=== PATIENT | female | born 1965 | race African-American/Black ===

== ENCOUNTER → 2023-03-08 | Emergency (ER) | payer SELFPAY ==
[~2023-03-08] MED LIST: INSULIN REGULAR (HUMAN) 100 UNIT/ML ONE; KETOROLAC 30 MG/ML INJ ONE; MORPHINE 4 MG/ML SYR ONE; NA CHLORIDE 0.9% 1,000 ML ONE; ONDANSETRON 4 MG/2 ML VIAL ONE
[2023-03-08 17:36] LABS: Hematocrit 39.4 % (36.0-45.0); Lymphocytes % 27.1 % (15.3-44.8); MCV 86.2 fL (80-100); MPV 11.1 fL (7.6-11.3); Platelets 221 thou/uL (152-406); RBC Red Blood Cell Count 4.56 M/uL (3.86-4.86)
[2023-03-08 17:58] LABS: Albumin 3.3 g/dL (3.4-5.0); Bilirubin Total 0.2 mg/dL (0.2-1.0); Potassium 4.3 mEq/L (3.5-5.1); Protein, Total 8.5 g/dL (6.4-8.2)
--- NOTE | 2023-03-08 18:57 | RAD REPORT ---
EXAM DESCRIPTION: CT - Abdomen Pelvis W Contrast - 03/08/2023 6:41 pm CLINICAL HISTORY: Abdominal pain COMPARISON: none. TECHNIQUE: Computed axial tomography of the abdomen pelvis was obtained. 100 cc Isovue-300 was admin istered intravenously. Oral contrast was not requested which limits evaluation of bowel and appendix All CT scans are performed using dose optimization technique as appropriate and may include automated exposure control or mA/KV adjustment according to patient size. FINDINGS: Mild fatty liver. Multiple gallstones. 13 millimeter low to intermediate density lesion spleen. Pancreas, adrenal and right kidney appear unremarkable. A 4 millimeter calculus left kidney. No hydro nephrosis There is no evidence of diverticulitis. Normal appendix Fibroid uterus. Several enlarged right inguinal lymph nodes containing small calcifications. Largest measures 3.8 x 2 .3 centimeters. Several right iliac chain lymph nodes. Largest 1.5 centimeter short axis. Some contai n small calcifications Small umbilical hernia IMPRESSION: Right inguinal and right iliac lymphadenopathy. Right inguinal lymph node would be yadi ble to ultrasound-guided core biopsy Cholelithiasis 13 millimeter splenic lesion nonspecific. Follow-up ultrasound in 2 months recommended for re-evaluat ion
--- NOTE | 2023-03-08 19:51 | ER ---
Nurse's Notes [facility] Name: Dimple Ramires Age: 57 yrs Sex: Female : 1965 Arrival Date: 03/08/2023 Time: 16:17 Bed 13 Private MD: Diagnosis: Other cholelithiasis without obstruction;Other nonspecific lymphadenitis;Hyperglycemia, unspecified Presentation: 03/08 16:24 Chief complaint: Patient states: 1 HR R FLANK PAIN WITH CLOUDY URINE. Coronavirus bp screen: At this time, the client does not indicate any symptoms associated with coronavirus-19. Ebola Screen: No symptoms or risks identified at this time. Initial Sepsis Screen: Does the patient meet any 2 criteria? No. Patient's initial sepsis screen is negative. Does the patient have a suspected source of infection? No. Patient's initial sepsis screen is negative. Risk Assessment: Do you want to hurt yourself or someone else? Patient reports no desire to harm self or others. Onset of symptoms was March 08, 2023 at 15:00. 16:24 Method Of Arrival: Ambulatory bp 16:24 Acuity: BRYANT 3 bp Historical: - Allergies: 16:26 Bactrim DS; bp - Home Meds: 16:26 aspirin 81 mg Oral capsule [Active]; lisinopril-hydrochlorothiazide 20-25 mg oral bp tablet 1 tab daily [Active]; duloxetine 60 mg oral capsule,delayed release (e.c.) 1 cap daily [Active]; omeprazole 20 mg Oral tablet, delayed release (enteric coated) 1 tabs daily [Active]; atenolol 50 mg Oral tablet 1 tabs daily [Active]; topiramate 25 mg oral tablet 1 tab daily [Active]; hydroxyzine HCl 25 mg Oral tablet 1 tab 3 times per day [Active]; - PMHx: 16:26 Hypertensive disorder; Diabetes mellitus; Gout; bp - Immunization history:: Adult Immunizations up to date. - Social history:: Smoking status: Patient denies any tobacco usage or history of. Screenin:25 [facility] ED Fall Risk Assessment (Adult) History of falling in the last 3 months, rs5 including since admission No falls in past 3 months (0 pts) Confusion or Disorientation No (0 pts) Intoxicated or Sedated No (0 pts) Impaired Gait No (0 pts) Mobility Assist Device Used No (0 pt) Altered Elimination No (0 pt) Score/Fall Risk Level 0 - 2 = Low Risk Oriented to surroundings, Maintained a safe environment. 16:25 Abuse screen: Denies threats or abuse. Nutritional screening: No deficits noted. rs5 Tuberculosis screening: No symptoms or risk factors identified. Assessment: 16:25 General: Appears in no apparent distress. uncomfortable, Behavior is calm, cooperative. rs5 Pain: Pain: Complains of pain in right flank Pain does not radiate. Pain currently is 8 out of 10 on a pain scale. Quality of pain is described as aching, Pain began 2 hours ago. Is continuous. 16:25 Neuro: Level of Consciousness is awake, alert, obeys commands, Oriented to person, rs5 place, time, situation. Cardiovascular: Heart tones S1 S2 present Rhythm is regular. 16:25 Respiratory: Airway is patent Respiratory effort is even, unlabored, Respiratory rs5 pattern is regular, symmetrical, Breath sounds are clear bilaterally. GI: Abdomen is round non-distended, Bowel sounds present X 4 quads. Abd is soft and non tender X 4 quads. Reports nausea. : No signs and/or symptoms were reported regarding the genitourinary system. EENT: No signs and/or symptoms were reported regarding the EENT system. Derm: Skin is intact, Skin is dry, Skin is normal, Skin temperature is warm. Musculoskeletal: Range of motion: intact in all extremities. 17:45 Reassessment: Patient and/or family updated on plan of care and expected duration. Pain rs5 level reassessed. Patient is alert, oriented x 3, equal unlabored respirations, skin warm/dry/pink. Patient states feeling better. Patient states symptoms have improved. 18:36 Reassessment: No changes from previously documented assessment. rs5 19:30 General: Appears comfortable, Behavior is calm, cooperative. Pain: Complains of pain in ha1 right flank Pain does not radiate. Pain currently is 2 out of 10 on a pain scale. Neuro: Level of Consciousness is awake, alert, obeys commands, Oriented to person, place, time, situation. Respiratory: Airway is patent Respiratory effort is even, unlabored, Respiratory pattern is regular, symmetrical. Derm: Skin is moist, Skin is normal. Musculoskeletal: Circulation, motion, and sensation intact. Range of motion: intact in all extremities. 20:30 Reassessment: Patient and/or family updated on plan of care and expected duration. Pain ha1 level reassessed. Patient is alert, oriented x 3, equal unlabored respirations, skin warm/dry/pink. discharge pending follow up on sugar levels. Vital Signs: 16:24 BP 107 / 87; Pulse 82; Resp 18; Temp 98.6; Pulse Ox 100% ; Weight 117.93 kg; Height 5 bp ft. 7 in. ; 17:25 BP 107 / 55; Pulse 70; Resp 17; Pulse Ox 99% on R/A; rs5 19:33 BP 121 / 75; Pulse 66; Resp 17 S; Pulse Ox 100% on R/A; ha1 20:30 BP 105 / 84; Pulse 65; Resp 17 S; Pulse Ox 100% on R/A; ha1 16:24 Body Mass Index 40.72 (117.93 kg, 170.18 cm) bp ED Course: 16:19 Patient arrived in ED. rg4 16:20 Fabian Escamilla MD is Attending Physician. ec2 16:25 Patient has correct armband on for positive identification. Placed in gown. Bed in low rs5 position. Call light in reach. Side rails up X2. 16:25 No provider procedures requiring assistance completed. rs5 16:26 Triage completed. bp 16:26 Arm band placed on. bp 16:53 Koko Scott, RN is Primary Nurse. rs5 17:15 Missed attempt(s): 22 gauge in right forearm. x 2. Bleeding controlled, band aid ll1 applied, catheter tip intact. 17:59 Minoo Treviño FNP-C is PHCP. ec2 18:43 CT Abd/Pelvis - IV Contrast Only In Process Unspecified. EDMS Administered Medications: 17:20 Drug: NS 0.9% IV 1000 ml IV at 1 bolus Per protocol; 1000 mL bolus Route: IV; Rate: 1 rs5 bolus; Site: right antecubital; 20:13 Follow up: Response: No adverse reaction; IV Status: Completed infusion ha1 17:20 Drug: TORadol - Ketorolac IVP 15 mg IVP once Route: IVP; Site: right antecubital; rs5 17:20 Drug: Ondansetron IVP 4 mg IVP once; over 2 minutes Route: IVP; Site: right antecubital;rs5 17:20 Drug: morphine IVP or IV 4 mg IVP once over 4 mins Route: IVP; Infused Over: 4 mins; rs5 Site: right antecubital; 20:05 Drug: Insulin Regular Human Sub-Q 10 units Sub-Q once {Co-Signature: me1 (fabiano Boss RN).} Route: Sub-Q; Site: abdomen; 20:46 Follow up: Response: No adverse reaction; Blood sugar is lowered ha1 Medication: 16:25 VIS not applicable for this client. rs5 Outcome: 19:51 Discharge ordered by . kb 20:57 Patient left the ED. ha1 Signatures: Dispatcher [employer] EDMinoo Orozco, AMPARO-C MANAGER ART-Demetria Rogel rg4 Harrison Melo RN RN Geena Burks RN RN 1 Bette Abreu RN RN 1 Koko Scott RN RN rs5 Fabian Escamilla MD MD 2 Kala Boss RN me1 Corrections: (The following items were deleted from the chart) 16:29 16:26 Allergies: No Known Allergies; bp bp 18:33 16:25 Pain: rs5 rs5
--- NOTE | 2023-03-08 19:52 | EDPHYS ---
Physician Documentation [facility] Name: Dimple Ramires Age: 57 yrs Sex: Female : 1965 Arrival Date: 03/08/2023 Time: 16:17 Bed 13 Private MD: ED Physician Fabian Escamilla HPI: 03/08 16:29 This 57 yrs old Black Female presents to ER via Ambulatory with complaints of Flank ec2 Pain. 16:29 Patient arrives today for evaluation of right-sided flank pain. Patient reports that ec2 she is having worsening pain over the past hour. States that the pain is in the right flank and goes into the right abdomen. Patient reports associated nausea without vomiting. Patient reports no diarrhea symptoms. Denies fevers, chills. Does report history of pyelonephritis, does report some cloudy urine as well as increased urinary frequency. Reports no abdominal surgery history pertinent for bilateral salpingectomy. Historical: - Allergies: 16:26 Bactrim DS; bp - Home Meds: 16:26 aspirin 81 mg Oral capsule [Active]; lisinopril-hydrochlorothiazide 20-25 mg oral bp tablet 1 tab daily [Active]; duloxetine 60 mg oral capsule,delayed release (e.c.) 1 cap daily [Active]; omeprazole 20 mg Oral tablet, delayed release (enteric coated) 1 tabs daily [Active]; atenolol 50 mg Oral tablet 1 tabs daily [Active]; topiramate 25 mg oral tablet 1 tab daily [Active]; hydroxyzine HCl 25 mg Oral tablet 1 tab 3 times per day [Active]; - PMHx: 16:26 Hypertensive disorder; Diabetes mellitus; Gout; bp - Immunization history:: Adult Immunizations up to date. - Social history:: Smoking status: Patient denies any tobacco usage or history of. ROS: 16:29 Constitutional: as per hpi ec2 Exam: 16:29 Constitutional: GEN: NAD Head: atraumatic Eyes: EOMI Ears: External ears are ec2 normal. CV: regular rate LUNGS: no respiratory distress ABD: non-distended, soft, nontender in the abdomen, no guarding, nonrigid, right CVA TTP SKIN: no evidence of rashes MSK: no evidence of trauma NEURO: moves all extremities equally Vital Signs: 16:24 BP 107 / 87; Pulse 82; Resp 18; Temp 98.6; Pulse Ox 100% ; Weight 117.93 kg; Height 5 bp ft. 7 in. ; 17:25 BP 107 / 55; Pulse 70; Resp 17; Pulse Ox 99% on R/A; rs5 19:33 BP 121 / 75; Pulse 66; Resp 17 S; Pulse Ox 100% on R/A; ha1 20:30 BP 105 / 84; Pulse 65; Resp 17 S; Pulse Ox 100% on R/A; ha1 16:24 Body Mass Index 40.72 (117.93 kg, 170.18 cm) bp MDM: 16:25 Patient medically screened. ec2 16:29 Data reviewed: vital signs. ED course: Patient arrives today for evaluation of right ec2 flank pain. Examination remarkable for well-appearing nontoxic individual is otherwise in no acute distress with right CVA TTP. Will obtain lab work, CT imaging, treat the patient's pain and reassess patient. Currently considering processes such as ureteral stone, pyelonephritis, low suspicion for process such as cholecystitis or appendicitis.. 17:59 Transition of care: After a detail discussion of the patient's case, care is ec2 transferred to Minoo MCMILLAN. ED course: Patient signed out pending labs and imaging.. 19:51 Counseling: I had a detailed discussion with the patient and/or guardian regarding the kb historical points, exam findings, and any diagnostic results supporting the discharge/admit diagnosis, lab results, radiology results, the need for outpatient follow up, a family practitioner, a general surgeon, to return to the emergency department if symptoms worsen or persist or if there are any questions or concerns that arise at home. 03/08 16:28 Order name: CBC with Diff; Complete Time: 17:51 ec2 03/08 16:28 Order name: CMP; Complete Time: 18:08 ec2 03/08 16:28 Order name: Lipase; Complete Time: 18:08 ec2 03/08 20:19 Order name: Glucose, Ancillary Testing; Complete Time: 20:24 EDMS 03/08 20:56 Order name: Glucose, Ancillary Testing; Complete Time: 20:56 EDMS 03/08 16:28 Order name: CT Abd/Pelvis - IV Contrast Only; Complete Time: 19:08 ec2 03/08 16:28 Order name: IV Saline Lock; Complete Time: 17:03 ec2 03/08 16:28 Order name: Labs collected and sent; Complete Time: 17:03 ec2 Administered Medications: 17:20 Drug: NS 0.9% IV 1000 ml IV at 1 bolus Per protocol; 1000 mL bolus Route: IV; Rate: 1 rs5 bolus; Site: right antecubital; 20:13 Follow up: Response: No adverse reaction; IV Status: Completed infusion ha1 17:20 Drug: TORadol - Ketorolac IVP 15 mg IVP once Route: IVP; Site: right antecubital; rs5 17:20 Drug: Ondansetron IVP 4 mg IVP once; over 2 minutes Route: IVP; Site: right antecubital;rs5 17:20 Drug: morphine IVP or IV 4 mg IVP once over 4 mins Route: IVP; Infused Over: 4 mins; rs5 Site: right antecubital; 20:05 Drug: Insulin Regular Human Sub-Q 10 units Sub-Q once {Co-Signature: 1 (fabiano Boss RN).} Route: Sub-Q; Site: abdomen; 20:46 Follow up: Response: No adverse reaction; Blood sugar is lowered ha1 Disposition: 19:52 Chart complete. kb Disposition Summary: 03/08/23 19:51 Discharge Ordered Notes: Location: Home kb Condition: Stable kb Diagnosis - Other cholelithiasis without obstruction kb - Other nonspecific lymphadenitis kb - Hyperglycemia, unspecified kb Followup: kb - With: Emergency Department - When: As needed - Reason: Worsening of condition Followup: kb - With: Private Physician - When: 2 - 3 days - Reason: Recheck today's complaints, Continuance of care, Re-evaluation by your physician Discharge Instructions: - Discharge Summary Sheet kb - Cholelithiasis, [id number] kb - Lymphadenopathy kb Forms: - Medication Reconciliation Form kb - Thank You Letter kb - Antibiotic Education kb - Prescription Opioid Use kb - Patient Portal Instructions kb - Leadership Thank You Letter kb Addendum: 03/14/2023 17:40 I was immediately available for consultation during this patient's visit. I did not e c2 personally see the patient or guide the patient's care. . Signatures: Dispatcher [employer] Minoo Fung, AMPARO-C AMPARO-Harrison Masters RN RN bp Bette Abreu RN RN ha1 Koko Scott RN RN rs5 Fabian Escamilla MD MD ec2 Kala Boss RN me1 Corrections: (The following items were deleted from the chart) 03/08 16:29 16:26 Allergies: No Known Allergies; bp bp 17:38 16:36 Patient medically screened. ec2 ec2
[2023-03-08 22:03] VITALS: BP 105/84; TEMP 98.6; O2SAT 100
== END ==
LOC: ER 16:17
DX: K80.80 Other cholelithiasis without obstruction (principal); I88.8 Other nonspecific lymphadenitis; E11.65 Type 2 diabetes mellitus with hyperglycemia
CPT/HCPCS: 36415; 74177; 80053; 82947; 83690; 85025; 96361; 96372; 96374; 96375; 99284; J1815; J2405; J7030; Q9967